=== PATIENT | female | born 1965 | race Caucasian/White ===

== ENCOUNTER → 2016-07-07 | Outpatient (CLI) | payer BC, OTHER ==
[~2016-07-07] MED LIST: CPRUNK
--- NOTE | 2016-07-07 14:53 | MAMMOGRAPHY REPORT ---
BILATERAL DIGITAL SCREENING MAMMOGRAM TOMOSYNTHESIS WITH CAD: 07/07/2016 CLINICAL HISTORY: Routine screening. Patient has no complaints. TECHNIQUE: Breast tomosynthesis in addition to standard 2D mammography was performed. Current study was also evaluated with a Computer Aided Detection (CAD) system. COMPARISON: Comparison is made to exams dated: 07/07/2015 mammogram, 07/04/2014 mammogram, 04/26/2013 m ammogram, 02/24/2012 mammogram, 02/01/2011 mammogram, and 02/01/2011 ultrasound - [facility]. BREAST COMPOSITION: The tissue of both breasts is heterogeneously dense, which may obscure small ma sses. FINDINGS: The parenchymal pattern is similar to prior exams. No developing mass, architectural dis tortion or cluster of suspicious microcalcifications is seen in either breast. IMPRESSION: ACR BI-RADS CATEGORY 2: BENIGN There is no mammographic evidence of malignancy. A 1 year screening mammogram is recommended. The p atient will receive written notification of the results. Approximately 10% of breast cancers are not detected with mammography. A negative mammographic repor t should not delay biopsy if a clinically suggestive mass is present. Rakel Sandoval M.D. ay/:07/07/2016 12:01:16 Printing Supervisor: Lidia PERKINS(R)(M), [facility] letter sent: Normal 1/2 BI-RADS Code: ACR BI-RADS Category 2: Benign
== END ==
LOC: C.MAMM 10:00
PROVIDERS: ATTEND Obstetrics & Gynecology
DX: Z12.31 Encounter for screening mammogram for malignant neoplasm of breast (principal)

== ENCOUNTER → 2016-09-02 | Outpatient (CLI) | payer BC, OTHER | END | disposition home or self-care (01) | LOC: C.LABSPEC 15:55 | PROVIDERS: ATTEND Family Medicine | DX: I99.8 Other disorder of circulatory system (principal) ==

== ENCOUNTER → 2016-09-02 | Outpatient (CLI) | payer BC, OTHER | END | disposition home or self-care (01) | LOC: C.LABSPEC 14:42 | PROVIDERS: ATTEND Family Medicine | DX: I99.8 Other disorder of circulatory system (principal) ==

== ENCOUNTER → 2016-09-03 | Outpatient (CLI) | payer BC, OTHER ==
--- NOTE | 2016-09-03 16:07 | DIAGNOSTIC IMAGING REPORT ---
ANKLE BRACHIAL INDEX COMPLETE CLINICAL HISTORY: 51-year-old female with poor circulation. TECHNIQUE: Ankle-brachial indices. FINDINGS: BRACHIAL: Right: 132 mmHg. Left: 135 mmHg. ANKLE (POSTERIOR TIBIAL): Right: 163 mmHg. Left: 168 mmHg. ANKLE (DORSALIS PEDIS): Right: 157 mmHg. Left: 142 mmHg. ANKLE/BRACHIAL INDEX: Right: 1.21, Left: 1.24. IMPRESSION: Normal PAYAL's bilaterally. Electronically signed by: David Kong M.D. 09/03/2016 4:06 PM Dictated Date/Time: 09/03/2016 4:02 PM
== END | disposition home or self-care (01) ==
LOC: C.ULTR 15:05
PROVIDERS: ATTEND Family Medicine
DX: M79.606 Pain in leg, unspecified (principal)

== ENCOUNTER → 2017-07-08 | Outpatient (CLI) | payer OTHER ==
--- NOTE | 2017-07-11 15:10 | MAMMOGRAPHY REPORT ---
BILATERAL DIGITAL SCREENING MAMMOGRAM TOMOSYNTHESIS WITH CAD: 07/08/2017 CLINICAL HISTORY: Routine screening. Patient has no complaints. TECHNIQUE: Breast tomosynthesis in addition to standard 2D mammography was performed. Current study was also evaluated with a Computer Aided Detection (CAD) system. COMPARISON: Comparison is made to exams dated: 07/07/2016 mammogram, 07/07/2015 mammogram, 07/04/2014 m ammogram, 04/26/2013 mammogram, 02/24/2012 mammogram, and 02/01/2011 mammogram - [facility]. BREAST COMPOSITION: The tissue of both breasts is heterogeneously dense, which may obscure small mas ses. FINDINGS: No suspicious masses, calcifications, or areas of architectural distortion are noted in ei ther breast. There has been no significant interval change compared to prior exams. Bilateral asymme tries are stable. IMPRESSION: ACR BI-RADS CATEGORY 2: BENIGN There is no mammographic evidence of malignancy. A 1 year screening mammogram is recommended. The pa tient will receive written notification of the results. Approximately 10% of breast cancers are not detected with mammography. A negative mammographic report should not delay biopsy if a clinically suggestive mass is present. Faye Ruiz M.D. ah/:07/08/2017 15:51:15 Asphalt Paving Superintendent: Naty PERKINS([place])(M), [facility] letter sent: Normal 1/2 BI-RADS Code: ACR BI-RADS Category 2: Benign
== END | disposition home or self-care (01) ==
LOC: C.MAMM 10:33
PROVIDERS: ATTEND Obstetrics & Gynecology
DX: Z12.31 Encounter for screening mammogram for malignant neoplasm of breast (principal)